=== PATIENT | male | born 1965 | race Caucasian/White ===

== ENCOUNTER → 2023-12-04 14:26 | Outpatient (REF) | payer OTHER, SELFPAY | LOC: HWRAD 14:26 | PROVIDERS: ATTENDING PHYSICIAN Nurse Practitioner Family | DX: M25.512 Pain in left shoulder (principal); S16.1XXA Strain of muscle, fascia and tendon at neck level, initial encounter | CPT/HCPCS: 72050; 73030 ==

== ENCOUNTER → 2024-04-21 13:43 | Outpatient (REF) | payer OTHER, SELFPAY | LOC: MRI 3T 13:43 | PROVIDERS: ATTENDING PHYSICIAN Nurse Practitioner Gerontology; FAMILY PHYSICIAN Family Medicine; REFERRING PHYSICIAN Orthopaedic Surgery | DX: M75.22 Bicipital tendinitis, left shoulder (principal); Z98.890 Other specified postprocedural states | CPT/HCPCS: 23350; 73040; 73222 ==

== ENCOUNTER 2024-07-16 09:58 | Emergency (ER) | payer OTHER, SELFPAY ==
[2024-07-16 10:22] VITALS: BP 140/92
[2024-07-16 11:29] VITALS: BMI 25.9
--- NOTE | 2024-07-16 11:29 | ED.GENMED ---
History of Present Illness
General
Chief Complaint: Male Genito-Urinary Symptoms
Source: patient
Exam Limitations: none
Time Seen by Provider: 07/16/24 11:09
Nursing documentation reviewed up to this point in time: agreed with
History of Present Illness
History of Present Illness:
58 yr. old male presents to the ER for evaluation of right groin pain. Patient reports about a month ago he noticed pain in his right groin that denies any exact injury. About a week ago he noticed increased pain to this right groin and noticed a
lump. He feels that he compressed the lump again. He does however report that it seems to be worse after eating sometimes. He denies any testicle pain. Denies any urinary frequency urgency or dysuria. Denies any back pain. Denies any nausea
vomiting fever chills. Denies any injury. He is a cyclist and sometimes notices it worse after being on a bike.
Review of Systems
Review of Systems
Allergies reviewed?: Yes
All Other Systems: ROS reviewed and negative except as documented in HPI and ROS
Constitutional: Reports no symptoms; Denies fever
Respiratory: Reports no symptoms
Cardiac: Reports no symptoms
ABD/GI: Reports abdominal pain; Denies nausea, vomiting or diarrhea
: Reports other (right groin pain )
Musculoskeletal: Reports no symptoms
Skin: Reports no symptoms
Neurological: Reports no symptoms
Psychiatric: Reports no symptoms
Phy Exam
General Physical Exam
General Presentation: no apparent distress
General age: appears stated age
General Skin: warm and dry
General Habitus: normal
General Mental: alert
General Hydration: appears well hydrated
Gastrointestinal Exam
Gastrointestinal Exam: normal bowel sounds, non tender and soft
Genitourinary Exam Male
Exam Male: circumcised, no discharge, normal testicular exam, no evidence of trauma, no testicular swelling, no testicular tenderness and other (right groin tender to palpation)
Neurological Exam
Neurological Exam: alert and oriented x3
Musculoskeletal Exam
Musculoskeletal Exam: full ROM
Skin Exam
Skin Exam: normal color and warm/dry
Psychiatric Exam
Psychiatric Exam: normal mood/affect
Course
Orders/Labs/Results
Orders:
Orders
07/16/24 11:27
Scrotum US [US Scrotum] Urgent
Comment: poss hernia tender nodular region right groin
Reason For Exam: right inguinal pain
07/16/24 11:28
IV Insert/Care/Rem.- Treatment PRN
0.9% Sodium Chloride 1000 ml [Nss] 1,000 ml IV BOLUS
07/16/24 11:31
CT Abd/pelvis W Iv Cont Urgent
Comment:
Reason For Exam: pain in right lower abd/groin
07/16/24 11:47
Complete Blood Count/With Diff Urgent
Comprehensive Metabolic Panel Urgent
07/16/24 11:48
Urinalysis Reflex To Culture Urgent
Date Specimen was Collected: 07/16/24
Time Specimen was Collected: 11:36
Abnormal Lab Results
07/16/24
11:47
Glucose 107 H mg/dl
(70-99)
07/16/24 11:47
07/16/24 11:47
Vital Signs
Initial and Last Documented VS:
Initial Vital Signs
Temp Pulse Resp BP Pulse Ox
98 F 71 18 140/92 99
07/16/24 10:22 07/16/24 10:22 07/16/24 10:22 07/16/24 10:22 07/16/24 10:22
Last Documented Vital Signs
Temp Pulse Resp BP Pulse Ox
98 F 63 16 119/69 97
07/16/24 10:22 07/16/24 14:07 07/16/24 14:07 07/16/24 15:00 07/16/24 15:00
Training Representative consulted with Physician
Training Representative consulted with physician?: Yes
Name of Physician Consulted: Rupali
MDM/Problems Addressed
Differential Diagnosis Includes:
Not limited to hernia, muscle strain, less likely diverticulitis renal stone UTI
MDM/Problems Addressed:
Symptoms are consistent with right inguinal hernia. Patient no acute distress tender to the right groin area no palpable hernia on exam however patient does report when he stood up and ultrasound he did feel that the hernia popped out. Ultrasound
does report a bowel containing right inguinal hernia. On repeat exam after ultrasound his abdomen is soft nontender no palpable hernia.
Will DC with outpatient surgery follow-up. In addition ultrasound does show small abnormal head cyst versus spermatoceles. Reviewed this with patient and importance of urology follow-up.
CAT scan shows possible colitis or patient with no diarrhea or chills no evidence of colitis. He is scheduled for colonoscopy in September discussed with patient to follow-up with his family doctor for reevaluation of these findings and GI as well he
may discuss this with his GI specialist when he is scheduled for his colonoscopy.
He is very well-appearing in no acute distress no fevers labs unremarkable stable for discharge home.
*Radiology
Radiology exam reviewed: radiology read reviewed
*Pulse Oximetry
Patient hypoxic: no
*Critical Care Note
Total Time (30-74mins, 75-104mins- exclusive of procedures): Not Applicable
ED Attending Note
-
Portions of this chart may have been created with voice recognition software.� Occasional wrong word or��sound alike� substitutions may have occurred due to the inherent limitations of voice recognition software.
Discharge Plan
Departure
Patient Disposition: Home (Routine Discharge)
Date of Disposition: 07/16/24
Time of Disposition: 15:32
Patient with high blood pressure during this ER visit?: No
Condition: Fair
Covid-19: Not Applicable
Discharge Problem:
Inguinal hernia
Instructions: Groin hernias
Referrals:
marycarmen guevara [Other]
Dimas Yen MD [Active, Urology]
Aleksandr Rose MD [Active, Surgical]
NONE,* [Family Provider, Internal Medicine]
Activity Restrictions/Additional Instructions:
As discussed no heavy lifting or exercise until cleared by surgery. Please follow-up with surgery for reevaluation of hernia. Call tomorrow to schedule an appointment as soon as possible
In addition you may follow-up with urology for findings on your scrotal ultrasound, including spermatocele
Please follow-up with your family doctor for further reevaluation and findings of your CAT scan including possible colitis. You have no concerning symptoms of colitis no diarrhea fever etc. It is recommended that you have a repeat scan. You do
have a colonoscopy scheduled in September please discuss with your family doctor and GI specialist
Return if any worsening of symptoms
Interventions
Interventions:
*Risk Screen - Suicide Last Done: 07/16/24 10:22
*General Assessment Last Done: 07/16/24 10:22
*Neglect/Abuse Screening Last Done: 07/16/24 10:22
*ED COVID-19 Vaccine History Last Done: 07/16/24 11:19
ED-Male Genitourinary Assessment Last Done: 07/16/24 11:54
Discharge Date and Time
Print Language: MONTSERRATIAN
[2024-07-16] MEDS: NSS 1000 IV (11:50)
[2024-07-16 11:57] LABS: % Basophils 0.3 % (0-2); % Eosinophils 1.7 % (0-6); % Immature Granulocytes 0.3 % (0-0.5); % Lymphocytes 20.8 % (20.5-51.1); % Monocytes 9.2 % (1.7-9.3); % Neutrophils 67.7 % (42.2-75.2); Absolute Eosinophils 0.1 10^3/uL (0-0.7); Absolute Lymphocytes 1.2 10^3/uL (1.2-3.4); Absolute Monocytes 0.5 10^3/uL (0.1-0.6); Hematocrit 43.6 % (39.0-52.0); Hemoglobin 15.2 g/dL (13.0-18.0); Mean Corp Hgb Conc. 34.9 g/dL (33.0-37.0); Mean Corpuscular Hgb 30.7 pg (27.0-31.0); Mean Corpuscular Volume 88.1 fL (80.0-94.0); Mean Platelet Volume 10.3 fL (7.4-10.4); Nucleated Red Blood Cells % 0 % (-); Platelet Count 269 10^3/uL (130-400); Red Blood Cell Count 4.95 10^6/uL (4.70-6.10); Red Cell Dist. Width 12.8 % (11.5-14.5); White Blood Cell Count 5.9 10^3/uL (4.8-10.8)
[2024-07-16 11:59] LABS: Urine Albumin Negative (Neg - Trace); Urine Bilirubin Negative (Negative); Urine Character Clear (Clear); Urine Color Yellow; Urine Glucose Negative (Negative); Urine Ketone Negative (Negative); Urine Leukocyte Negative (Negative); Urine Nitrite Negative (Negative); Urine Occult Blood Negative (Negative); Urine Specific Gravity 1.005 (<1.030); Urine Urobilinogen Negative (Neg - 1+)
[2024-07-16 12:00] VITALS: BP 120/81
[2024-07-16 12:12] LABS: ALT (SGPT) 19 U/L (0-50); AST (SGOT) 24 U/L (17-59); Albumin 4.5 g/dl (3.5-5.0); Alkaline Phosphatase 51 U/L (38-126); Blood Urea Nitrogen 20 mg/dl (9-20); Calcium 9.5 mg/dl (8.4-10.2); Carbon Dioxide 28 mmol/L (22-30); Chloride 106 mmol/L (98-107); Estimated Creatinine Clearance 106 ml/min; Glucose 107 mg/dl (70-99); Potassium 4.4 mmol/L (3.5-5.1); Sodium 140 mmol/L (135-145); Total Bilirubin 0.6 mg/dl (0.2-1.3); Total Protein 7.2 g/dl (6.3-8.2); eGFR > 60.00
[2024-07-16 14:05] VITALS: BP 126/79
[2024-07-16 15:00] VITALS: BP 119/69
[2024-07-16 15:41] VITALS: BP 126/76
== END 2024-07-16 15:48 | disposition home or self-care (01) ==
LOC: EMR 09:58
PROVIDERS: Nurse Practitioner; EMERGENCY PHYSICIAN Emergency Medicine
DX: K40.90 Unilateral inguinal hernia, without obstruction or gangrene, not specified as recurrent (principal)
CPT/HCPCS: 99284; 74177; 76870; 80053; 81003; 85025; 93976; Q9967

== ENCOUNTER 2024-09-12 06:18 | Day surgery (SDC) | payer OTHER, SELFPAY ==
[2024-08-25 14:00] VITALS: BMI 25.6
[2024-09-12] VITALS (14 sets, daily range): BP systolic 106–143; BP diastolic 62–82; BMI 25.6
--- NOTE | 2024-09-12 06:52 | HP.FOC2 ---
Focused History & Physical
Chief Complaint
HPI:
Chief Complaint: Right inguinal hernia
HPI / Indication for Planned Procedure: Patient is a 59-year-old male recently seen in outpatient surgical evaluation secondary to swelling and discomfort in the right inguinal region. Outpatient evaluation confirmed the presence of a soft, readily
apparent right inguinal hernia. After discussions regarding management options patient wished to pursue operative correction. He presents today for robotic assisted laparoscopic right inguinal herniorrhaphy with mesh
Relevant Past Medical History: Negative
Relevant Social History: Negative
Relevant Family History: Negative
Relevant Past Surgical History: Positive for (Left ACL repair, left shoulder rotator cuff repair)
Review of Systems
Review of Pertinent Systems: All Systems Negative
Medication
See Medication form for detailed medications: Yes
Medication List (including Herbals & OTC):
No Meds [No Current Medications] 09/05/24
Medications Reviewed: Yes
Allergies and Reactions
Patient has Allergies: Yes
Noted Allergies and Reactions:
Allergy/AdvReac Type Severity Reaction Status Date / Time
aspirin Allergy Anaphylaxis Verified 09/05/24 08:23
ibuprofen Allergy Anaphylaxis Verified 09/05/24 08:23
Pertinent Physical Exam
All Other Systems: Negative
Head/Neck: Normal
Lungs: Normal
Heart: Normal
Abdomen: Other (Reducible right inguinal hernia)
Extremities: Normal
Neurological: Normal
Diagnosis / Assessment
59-year-old male presenting for scheduled operative correction symptomatic right inguinal hernia
Plan / Procedure
Robotic assisted laparoscopic repair right inguinal hernia with mesh
Anesthesia/Sedation to be done by Anesthesia Provider: Yes
--- NOTE | 2024-09-12 06:55 | W.SUR.PREOP ---
Pre-Operative Surgical Note
-
I have examined this patient prior to the performance of the scheduled procedure.
The patient's condition is unchanged from the time of the current History and
Physical and the patient is able to undergo the scheduled procedure.
[2024-09-12] MEDS: TYLENOL 1000 MG PO (07:04)
[2024-09-12] MEDS: NORMOSOL-R/PLASMALYTE-A 1000 IV (07:13)
--- NOTE | 2024-09-12 09:33 | W.IMMPOSTOP ---
Surgical Immed Post Op Note
-
Primary Surgeon: Joe Kathleen MD
Assisting Surgeon: Vidhya Lopez PA-C
Pre-op Diagnosis: Right inguinal hernia
Post-op Diagnosis: Right inguinal hernia, indirect
Procedure Performed: Robotic assisted laparoscopic NIRAV repair right inguinal hernia with mesh
Anesthesia Type: GETA +0.25% Marcaine with epi
Specimen / Cultures: None
Estimated Blood Loss: 6 mL
Complications: None immediate
Operative Findings: Right indirect inguinal hernia. Direct and femoral space normal. No lipoma of spermatic cord structures identified. 3D max large mid weight mesh repair. Mesh secured to Marvin's ligament with 2-0 Vicryl stitch x 2.
Peritoneal flap closed with 2-0 Monocryl STRATAFIX spiral.
The assistance of Vidhya Lopez PA-C was required due to the complexity of the procedure. During the procedure Vidhya Lopze PA-C assisted with port placement, robotic instrumentation and suture material exchanges, and closure of the surgical incision
sites. I was present for the entirety of the operative procedure.
--- NOTE | 2024-09-12 09:35 | OR.RPT ---
Operative Report
Operative Report
Date of operative procedure: 09/12/2024
Primary Surgeon: Joe Kathleen MD
Assisting Surgeon: Vidhya Lopez PA-C
Pre-op Diagnosis: Right inguinal hernia
Post-op Diagnosis: Right inguinal hernia, indirect
Procedure Performed: Robotic assisted laparoscopic NIRAV repair right inguinal hernia with mesh; 3D max large mid weight mesh
Anesthesia Type: GETA +0.25% Marcaine
Specimen / Cultures: None/none
Estimated Blood Loss: 6 mL
Complications: None immediate
Indications for operative procedure: Patient is a 59-year-old male recently seen in outpatient surgical evaluation secondary to swelling and discomfort in the right inguinal region. Outpatient evaluation confirmed the presence of a soft, readily
apparent right inguinal hernia. After discussions regarding management options patient wished to pursue operative correction. He presents today for robotic assisted laparoscopic right inguinal herniorrhaphy with mesh.
Brief summary of operative Findings: Right indirect inguinal hernia. Direct and femoral space normal. No lipoma of spermatic cord structures identified. 3D max large mid weight mesh repair. Mesh secured to Marvin's ligament with 2-0 Vicryl
stitch x 2. Peritoneal flap closed with 2-0 Monocryl STRATAFIX spiral. There were no additional incidental findings.
Operation detail: The patient was identified in the preoperative holding area. I confirmed the surgical site and side with the patient preoperatively which was then marked and initialed by myself. The patient was interviewed by the anesthesia and
nursing staff then brought back to the operating room. The patient was placed on the operating table in supine position. The bilateral upper extremities were carefully padded and tucked at the side utilizing the arm guard positioning system.
Pneumatic compression boots were on the bilateral lower extremities. Following induction of general endotracheal anesthesia the patient was administered Ancef 2 g IV for prophylactic antibiotic coverage. The patient's anterior abdominal wall was
now widely and sterilely prepped with ChloraPrep and then draped in the usual manner. The surgical timeout was completed and the procedure was confirmed.
I initially proceeded with Veress needle insufflation in the left subcostal midclavicular line location. Once insufflated to 12 mmHg pressure then a left midclavicular line 8 mm trocar was then placed. The robotic scope was inserted, there was no
evidence of iatrogenic injury from access. The Veress needle was withdrawn. An epigastric 8 mm trocar was placed just to the right off of the midline. A right midclavicular line 8 mm trocar was placed. The patient was then transition into
Trendelenburg to expose the inguinal/pelvic space and the robot was docked.
At the surgeon console inspection of the pelvis confirmed the presence of a right indirect inguinal hernia, 2 fingerbreadth defect estimated. There were no additional incidental intra-abdominal findings.
I initially began with creation of a peritoneal flap at the level of the right ASIS to the right medial umbilical ligament. The preperitoneal plane was now established along the length of the flap and developed inferiorly down to the inguinal
space. The medial dissection proceeded until the notch of the pubic symphysis was exposed at the midline followed by Marvin's ligament on the right side. Marvin's ligament was now cleared through the direct and femoral space; both of which were
normal. The underside of Marvin's ligament was exposed as well. The peritoneal flap was now mobilized laterally down to the internal ring. The hernia sac was then grasped and begun to be reduced out of the inguinal canal and off of the cord
structures from an anterior lateral to anterior medial approach. I carefully continued to reduce the hernia sac off of the cremasteric fibers and cord contents all the way to the apex of the hernia sac. Next the hernia sac was now reduced off of
its posterior attachments with identification of the vas and the spermatic cord vessels. The hernia sac dissection continued back proximally past the turn in the right vas deferens and then overlying the right iliac space to meet up with the medial
dissection. The posterior dissection continued until there was wide separation between the vas and the spermatic cord vessels. The dissection continued posterior laterally for full exposure of the myopectineal orifice.
With the myopectineal orifice now completely exposed hemostasis was confirmed. A 3D max large mid weight mesh was utilized for repair. The mesh was positioned parallel to the ileopubic tract. It was secured at 2 separate locations inferior
medially on Marvin's ligament with 2 simple interrupted 2-0 Vicryl sutures. The patient was now begun to be taken out of Trendelenburg to confirm that the posterior aspect of the mesh was lying flat and that there was no shelling or undermining of
the mesh by the peritoneal edge. Insufflation pressure was reduced down to 8 mmHg pressure. The peritoneal flap was now closed with a 2-0 Monocryl STRATAFIX spiral suture with a running [place] type stitch. The hernia sac was ligated with a 2-0
Vicryl suture ligature at the neck of the hernia sac.
A flexible suction catheter was placed through an 8 mm trocar and introduced into the peritoneal flap to evacuate the air out of the preperitoneal space. This again confirmed good positioning of the inguinal hernia mesh. There was no shelling or
folding of the mesh and no undermining and mesh by the peritoneal edge. The peritoneal covering of the mesh was completely intact.
At this point the robot was undocked. All sponge instrument and needle counts were confirmed to be correct x 2. The CO2 insufflation was now carefully evacuated out of the abdominal cavity. The trocar sites were removed as well as the flexible
suction catheter. Skin was closed with 4-0 Monocryl. Sterile surgical glue dressings were applied. The patient tolerated the procedure well and was transferred to the recovery unit for routine postoperative monitoring.
The assistance of Vidhya Lopez PA-C was required due to complexity of surgery. During the procedure Vidhya Lopez PA-C assisted with port placement, robotic instrumentation and suture material exchanges as well as closure of the surgical sites. I
was present for the entirety of the operative procedure.
[2024-09-12] MEDS: DILAUDID 0.25 MG IV (10:05)
[2024-09-12] MEDS: NSS (PRESERVATIVE FREE) 8 ML IV (11:01)
[2024-09-12] MEDS: PEPCID 20 MG IV (11:01)
[2024-09-12] MEDS: ZOFRAN 4 MG IV (12:18)
== END 2024-09-12 12:30 | disposition home or self-care (01) ==
LOC: SDS 06:18
PROVIDERS: ATTENDING PHYSICIAN Surgery; FAMILY PHYSICIAN Family Medicine
DX: K40.90 Unilateral inguinal hernia, without obstruction or gangrene, not specified as recurrent (principal)
CPT/HCPCS: 49650; 36415; 93005; C1781